=== PATIENT | male | born 1965 | race Caucasian/White ===

== ENCOUNTER → 2020-12-10 09:26 | Outpatient (BNVA) | payer BC, SELFPAY | PROVIDERS: Family Provider Family Medicine; PCP Urology; Visit Provider Urology | DX: N39.9 Disorder of urinary system, unspecified (principal); R33.9 Retention of urine, unspecified; N41.9 Inflammatory disease of prostate, unspecified; N41.1 Chronic prostatitis; Z80.42 Family history of malignant neoplasm of prostate | CPT/HCPCS: 81003; G0103 ==